=== PATIENT | male | born 1955 | race Caucasian/White ===

== ENCOUNTER 2019-08-24 02:15 | Emergency (ER) | payer BC, SELFPAY ==
[2019-08-24 03:02] LABS: #Basophils 0.1 thou/uL (0.0-0.2); #Eosinphils 0.5 thou/uL (0.0-0.7); #Lymphocytes 2.9 thou/uL (1.20-3.40); #Monocytes 0.7 thou/uL (0.11-0.59); #Neutrophils 6.3 thou/uL (1.40-6.50); %Basophils 0.6 % (0.0-1.0); %Eosinophils 4.5 % (0.0-10.0); %Lymphocytes 27.8 % (21.0-51.0); %Monocytes 6.5 % (0.0-10.0); %Neutrophils 60.7 % (42.0-75.0); Mean Corpuscular HGB CONC 34.9 g/dL (32.0-36.0); Mean Corpuscular Hemoglobin 31.6 pg (27.0-31.0); Mean Corpuscular Volume 90.7 fL (78.0-98.0); Mean Platelet Volume 7.5 fL (7.4-10.4); Platelet Count 200 thou/uL (130-400); RBC Distribution Width 11.6 % (11.5-14.5); Red Blood Cell (RBC) Count 5.06 mill/uL (4.70-6.10); White Blood Cell (WBC) Count 10.4 thou/uL (4.8-10.8)
[2019-08-24 03:25] LABS: ALT (SGPT) 20 U/L (8-55); AST (SGOT) 17 U/L (5-34); Albumin 4.3 g/dL (3.4-4.8); Alkaline Phosphatase 114 U/L (40-110); Anion Gap 15 mmol/L (10-20); BUN (Urea Nitrogen) 16 mg/dL (8.4-25.7); Bilirubin, Total 0.4 mg/dL (0.2-1.2); Calc. Creatinine Clearance 0 mL/min (70-130); Calcium 8.8 mg/dL (7.8-10.44); Carbon Dioxide 21 mmol/L (23-31); Chloride 105 mmol/L (98-107); Estimated GFR-MDRD 61; Globulin 3.1 g/dL (2.4-3.5); Glucose 98 mg/dL (80-115); Potassium 4.1 mmol/L (3.5-5.1); Protein, Total 7.4 g/dL (5.8-8.1); Sodium 137 mmol/L (136-145)
[2019-08-24] MEDS ORDERED: Ondansetron PF 4 MG/2 ML Vial ONE (04:30)
[2019-08-24] MEDS ORDERED: Morphine 4 MG/ML VIAL ONE (04:30)
[2019-08-24] MEDS ORDERED: Apixaban 5 MG TAB PO SCH (04:45)
--- NOTE | 2019-08-24 08:43 | CT ---
PRELIMINARY REPORT/DIRECT RADIOLOGY/EMERGENCY AFTER HOURS PROCEDURE Receipt of this report by the clinical staff was confirmed with Holley Dejesus MD by Dottie Puga on Aug 24, 2019 04:19:00 CDT. Addendum electronically signed by Dottie Puga on August 24, 2019 4:20:17 AM CDT EXAM: CTA Chest with Intravenous Contrast CLINICAL HISTORY: Pt reports waking at 0100 today with right lateral chest pain. Pain was worse with deep breaths and movement. No alleviating factors. Denies dyspnea, cough, or fever. 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 Pt states pain has improved markedly at time of my exam TECHNIQUE: Axial CTA images of the chest with intravenous contrast. Three-dimensional MIP/volume rend ered reformations were performed. CONTRAST: With; ISOVUE 370,100mL COMPARISON: None provided. FINDINGS: PULMONARY ARTERIES There are pulmonary arterial filling defects within the lateral right mid lobe s egmental and lateral right lower lobe segmental to subsegmental pulmonary arteries. As well, there i s a filling defect seen within a lingular segmental left upper lobe pulmonary artery. No additional pulmonary emboli. AORTA No thoracic aortic aneurysm or dissection. Mild calcified and noncalcified atherosclerosis o f the thoracic aorta, as well as the proximal arch vessels. LUNGS Lateral subpleural basal right lower lobe subtle consolidative opacity, may represent early p ulmonary infarct. Lateral basal right lower lobe calcified granuloma. No suspicious pulmonary mass or nodule. Mild paraseptal emphysema within the lung apices. Thin-walled lingular pneumatocele. Cl ear, normal caliber airways. PLEURAL SPACES No pleural effusion. No pneumothorax. HEART AND MEDIASTINUM No cardiomegaly. No significant pericardial effusion. Moderate coronary [place] ry calcium. Normal esophagus. LYMPH NODES No lymphadenopathy. Small calcified lymph nodes of the right hilum, sequela of granulo matous process. BONES No focal osseous abnormality or acute fracture. Degenerative changes of the imaged spine. P artially imaged lower cervical fusion. CHEST WALL AND UPPER ABDOMEN Images through the upper abdomen are unremarkable. The chest wall is u nremarkable. IMPRESSION: Bilateral segmental to subsegmental pulmonary emboli, as detailed, with questionable cindy y Hinojosa's hump/pulmonary infarct of the lateral basal right lower lobe. ELECTRONICALLY SIGNED BY: Frank Diaz MD Aug 24, 2019 4:17:00 AM CDT FINAL REPORT EMERGENT AFTER HOURS CT PULMONARY ANGIOGRAM: IMPRESSION: Agree with the preliminary interpretation that there is evidence for filling defects involving the pu lmonary arterial system bilaterally compatible with pulmonary emboli. POS: JACKIE
--- NOTE | 2019-08-24 08:49 | RAD ---
PORTABLE CHEST: DATE: 08/24/2019. PROVIDED CLINICAL HISTORY: Shortness of breath and chest pain. FINDINGS: Comparison 05/01/2012. Cardiac and mediastinal silhouette is within normal limits. No focal consolid ation, pleural fluid, or pneumothorax apparent. IMPRESSION: No evidence for an acute cardiopulmonary process. POS: JACKIE
[2019-08-24] MEDS ORDERED: Iopamidol-370 76% 500 ML 1 ML ONE (09:32)
== END 2019-08-24 04:51 | disposition home or self-care (01) ==
LOC: ERS 02:15
DX: I26.99 Other pulmonary embolism without acute cor pulmonale (principal); I10 Essential (primary) hypertension; F17.210 Nicotine dependence, cigarettes, uncomplicated
CPT/HCPCS: 71045; 71275; 80053; 84484; 85025; 85379; 93005; J2270; J2405; Q9967

== ENCOUNTER 2022-02-15 02:56 | Observation (INO) | payer OTHER, SELFPAY ==
[2022-02-15 03:52] LABS: #Eosinphils 0.3 thou/uL (0.0-0.7); #Lymphocytes 2.3 thou/uL (1.20-3.40); #Monocytes 0.6 thou/uL (0.11-0.59); #Neutrophils 5.1 thou/uL (1.40-6.50); %Basophils 0.4 % (0.0-1.0); %Eosinophils 3.9 % (0.0-10.0); %Monocytes 6.6 % (0.0-10.0); %Neutrophils 61.1 % (42.0-75.0); Hemoglobin 16.5 g/dL (14.0-18.0); Mean Corpuscular HGB CONC 34.1 g/dL (32.0-36.0); Mean Corpuscular Hemoglobin 32.1 pg (27.0-31.0); Mean Corpuscular Volume 94.2 fl (78.0-98.0); Mean Platelet Volume 7.1 fL (7.4-10.4); Platelet Count 180 10x3/uL (130-400); RBC Distribution Width 11.8 % (11.5-14.5); Red Blood Cell (RBC) Count 5.14 mill/uL (4.70-6.10); White Blood Cell (WBC) Count 8.3 10x3/uL (4.8-10.8)
[2022-02-15 04:13] LABS: ALT (SGPT) 20 U/L (8-55); AST (SGOT) 17 U/L (5-34); Alkaline Phosphatase 103 U/L (40-110); Anion Gap 14 mmol/L (10-20); BUN (Urea Nitrogen) 13 mg/dL (8.4-25.7); Bilirubin, Total 0.5 mg/dL (0.2-1.2); Calc. Creatinine Clearance 0 mL/min (70-130); Calcium 8.7 mg/dL (7.8-10.44); Carbon Dioxide 21 mmol/L (23-31); Chloride 110 mmol/L (98-107); Estimated GFR 75; Globulin 2.6 g/dL (2.4-3.5); Glucose 122 mg/dL (80-115); Potassium 4.2 mmol/L (3.5-5.1); Protein, Total 6.6 g/dL (5.8-8.1); Sodium 141 mmol/L (136-145)
[2022-02-15] MEDS ORDERED: Nitroglycerin 2% Ointment 1 INCH/1 GM Packet ONE (04:23)
[2022-02-15] MEDS ORDERED: Aspirin Chewable 81 MG TAB ONE (04:23)
[2022-02-15] MEDS ORDERED: Ondansetron PF 4 MG/2 ML Vial ONE (04:52)
[2022-02-15] MEDS ORDERED: Morphine 4 MG/ML VIAL ONE ×2 (04:52→10:22)
[2022-02-15] MEDS ORDERED: Ketorolac Tromethamine 30 MG/ML VIAL ONE (06:15)
[2022-02-15 08:01] LABS: Troponin I 0.011 ng/mL (< 0.028)
[2022-02-15] MEDS ORDERED: Acetaminophen 325 MG TAB PO PRN (09:14)
[2022-02-15] MEDS ORDERED: Ondansetron PF 4 MG/2 ML Vial IVP PRN (09:14)
[2022-02-15] MEDS ORDERED: Ondansetron ODT 4 MG TAB PO PRN (09:14)
[2022-02-15] MEDS ORDERED: Sodium Chloride 0.9% 1,000 ML IV SCH (09:15)
[2022-02-15] MEDS ORDERED: Enoxaparin Sodium 40 MG/0.4 ML SYRINGE SC SCH (09:15)
[2022-02-15 09:59] LABS: Hemoglobin A1c 5.3 % (4.0-6.0)
[2022-02-15] MEDS ORDERED: Nicotine 14 MG PATCH TD SCH (10:00)
[2022-02-15 10:16] LABS: Cholesterol 212 mg/dl (< 200 Desired); HDL Cholesterol 42 mg/dL (>60 Neg Risk); LDL Cholesterol, Calculated 146 mg/dL; Magnesium 1.9 mg/dL (1.6-2.6); Triglycerides 119 mg/dL (Less than 150)
[2022-02-15] MEDS ORDERED: Morphine 2 MG/ML VIAL SLOW IVP PRN (10:18)
[2022-02-15 10:32] LABS: Troponin I Less than 0.010 ng/mL (< 0.028)
[2022-02-15] MEDS ORDERED: Regadenoson 0.4 MG/5 ML SYRINGE ONE (12:39)
[2022-02-15] MEDS ORDERED: Iopamidol-370 76% 500 ML 1 ML ONE (12:45)
[2022-02-15 15:19] VITALS: BP 178/93; TEMP 98.1
[2022-02-15] MEDS ORDERED: Gabapentin 100 MG CAP PO SCH (16:30)
[2022-02-16] MEDS ORDERED: Gabapentin 100 MG CAP PO SCH (09:00)
[2022-02-16] MEDS ORDERED: Aspirin Chewable 81 MG TAB PO SCH (09:00)
== END 2022-02-15 16:55 | disposition home or self-care (01) ==
LOC: ERS 02:56 → ERHOLD 07:06 → 2SW 15:09
PROVIDERS: ADMIT Internal Medicine; ATTEND Nurse Practitioner Family
DX: R07.9 Chest pain, unspecified (principal); M54.2 Cervicalgia; M79.602 Pain in left arm; I10 Essential (primary) hypertension; E78.5 Hyperlipidemia, unspecified; F17.210 Nicotine dependence, cigarettes, uncomplicated; I25.10 Atherosclerotic heart disease of native coronary artery without angina pectoris; E66.9 Obesity, unspecified; Z68.33 Body mass index [BMI] 33.0-33.9, adult; Z95.5 Presence of coronary angioplasty implant and graft
CPT/HCPCS: 71045; 71275; 78452; 80061; 83036; 83735; 84484 ×2; 93005; 93017; 96374; 96375; 99285; A9500; G0378 ×2; J2270; 36415; 80053; 84443; 85025; J1885; J2405; J2785; Q9967